=== PATIENT | female | born 1975 | race Caucasian/White ===

== ENCOUNTER → 2018-08-09 12:58 | Outpatient (CLI) | payer BC ==
[~2018-08-09 12:58] MED LIST: AMBIEN10 MG PO; CLARITIN 10 MG10 MG PO; HYDROCODONE-APA1 TAB PO; IBUPROFEN600 MG PO; LEXAPRO20 MG PO; PERCOCET 5-3251 TAB PO; XANAX0.5 MG PO
== END | disposition home or self-care (01) ==
LOC: D.HCCARDIO 12:58
PROVIDERS: ATTEND Internal Medicine Cardiovascular Disease
DX: R00.2 Palpitations (principal)

== ENCOUNTER → 2019-06-23 10:36 | Outpatient (CLI) | payer SELFPAY ==
[~2019-06-23 10:36] MED LIST changes: +KLONOPIN1 MG PO; +PERCOCET 10-321 EAC1 PO; +ZOLOFT100 MG PO
[2019-06-23 20:49] LABS: BASOPHILS 0.2 % (0-2); EOSINOPHILS 0.4 % (0-7); HEMATOCRIT 44.6 % (36.0-48.0); HEMOGLOBIN 15.1 g/dL (12-16); IMMATURE GRANULOCYTES 0.1 % (0-5); LYMPHOCYTES 18.7 % (15-50); MCH 34.5 pg (26.0-34.0); MCHC 33.9 g/dL (31.0-37.0); MCV 101.8 fL (80.0-100.0); MONOCYTES 6.1 % (2-11); NEUTROPHILS 74.5 % (40-80); PLATELET COUNT 194 10x3/uL (130-400); RBC 4.38 10x6/uL (4.00-5.40); RDW 13.1 % (11.5-14.5); WBC 8.2 10x3/uL (4.8-10.8)
[2019-06-23 21:54] LABS: ERYTHROCYTE SEDIMENTATION RATE 2 mm/hr (0-20)
== END | disposition home or self-care (01) ==
LOC: D.LABREF 10:36
PROVIDERS: ATTEND Clinical Nurse Specialist Family Health
DX: M25.562 Pain in left knee (principal)